=== PATIENT | male | born 1985 | race Two or more races ===

== ENCOUNTER 2019-03-25 03:31 | Emergency (ER) | payer SELFPAY ==
[~2019-03-25] VITALS: Ht 182.9 cm; Wt 68.0 kg
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
--- NOTE | 2019-03-25 03:43 | NUR ---
PT TO RADIOLOGY ON [facility]
--- NOTE | 2019-03-25 04:10 | NUR ---
PT BACK FROM RADIOLOGY
[2019-03-25] MEDS ORDERED: AMOX/CLAVULANATE 875 MG TABLET PO ONE (05:00)
[2019-03-25] MEDS ORDERED: AMOX/CLAVULANATE 875 MG TABLET ONE (07:07)
[2019-03-25 07:30] VITALS: BP 135/71
--- NOTE | 2019-03-25 07:31 | NUR ---
Patient discharged to home in stable condition. Written and verbal after care instructions given. Patient verbalizes understanding of instruction.
== END 2019-03-25 07:31 | disposition home or self-care (01) ==
LOC: ER 03:36
DX: S02.2XXA Fracture of nasal bones, initial encounter for closed fracture (principal); S02.40DA Maxillary fracture, left side, initial encounter for closed fracture; S06.2X0A Diffuse traumatic brain injury without loss of consciousness, initial encounter; S09.8XXA Other specified injuries of head, initial encounter; F10.129 Alcohol abuse with intoxication, unspecified; Y90.9 Presence of alcohol in blood, level not specified; Y08.89XA Assault by other specified means, initial encounter; Y93.89 Activity, other specified; Y92.481 Parking lot as the place of occurrence of the external cause; Y99.8 Other external cause status
CPT/HCPCS: 70450-TC; 70486-TC; 72125-TC

== ENCOUNTER 2019-08-30 21:33 | Emergency (ER) | payer SELFPAY ==
[~2019-08-30] VITALS: Ht 170.2 cm; Wt 74.8 kg
[2019-08-30 21:33] VITALS: BP 134/72
--- NOTE | 2019-08-30 21:35 | NUR ---
PT CAME IN C/O COUGH, FEVER, SORE THROAT, GEN BODY PAIN X2 DAYS. TOOK TYLENOL 1GM @ 1999. PT AAOX4, VSS, NO ACUTE DISTRESS NOTED. CONNECTED TO THE MONITOR AND POX
[2019-08-30] MEDS ORDERED: IBUPROFEN 400 MG TABLET ONE (22:00)
[2019-08-30] MEDS ORDERED: IBUPROFEN 400 MG TABLET PO ONE (22:00)
--- NOTE | 2019-08-30 22:04 | NUR ---
Patient discharged to home in stable condition. Written and verbal after care instructions given. Patient verbalizes understanding of instruction.
== END 2019-08-30 22:05 | disposition home or self-care (01) ==
LOC: ER 21:43
DX: J11.1 Influenza due to unidentified influenza virus with other respiratory manifestations (principal); R00.0 Tachycardia, unspecified; F10.10 Alcohol abuse, uncomplicated; Y90.9 Presence of alcohol in blood, level not specified